=== PATIENT | female | born 1990 | race African-American/Black ===

== ENCOUNTER 2017-01-02 12:01 | Emergency (ER) | payer OTHER ==
[~2017-01-02] VITALS: Ht 172.7 cm; Wt 68.2 kg
[~2017-01-02 12:01] MED LIST: ALBU8HFA IH
[2017-01-02] MEDS ORDERED: HYDROCODONE/ACETAMINOPHEN 5-325 MG TABLET PO ONE (14:00)
[2017-01-02] MEDS ORDERED: KETOROLAC TROMETHAMINE 60 MG/2 ML VIAL IM ONE (14:15)
[2017-01-02] MEDS ORDERED: IBUPROFEN 800 MG TABLET PO ONE (15:00)
[2017-01-02 16:16] VITALS: BP 120/73
== END 2017-01-02 16:17 | disposition home or self-care (01) ==
LOC: EMS 12:04
DX: S93.402A Sprain of unspecified ligament of left ankle, initial encounter (principal); M79.672 Pain in left foot; F17.210 Nicotine dependence, cigarettes, uncomplicated; J45.909 Unspecified asthma, uncomplicated; X58.XXXA Exposure to other specified factors, initial encounter; Y93.89 Activity, other specified; Y92.9 Unspecified place or not applicable; Y99.9 Unspecified external cause status
CPT/HCPCS: 73610; 73630; 99284; J1885

== ENCOUNTER 2017-04-20 16:16 | Emergency (ER) | payer OTHER ==
[~2017-04-20] VITALS: Ht 172.7 cm; Wt 68.0 kg
[2017-04-20] MEDS ORDERED: LIDOCAINE HCL 5% TRANSDERMAL PATCH TD ONE (17:45)
[2017-04-20 19:15] VITALS: BP 108/71
== END 2017-04-20 19:16 | disposition home or self-care (01) ==
LOC: EMS 16:19
DX: M54.5 Low back pain (principal); M54.6 Pain in thoracic spine; M41.9 Scoliosis, unspecified; J45.909 Unspecified asthma, uncomplicated; F17.210 Nicotine dependence, cigarettes, uncomplicated
CPT/HCPCS: 72072; 72100; 99284

== ENCOUNTER 2017-05-13 10:28 | Emergency (ER) | payer OTHER ==
[~2017-05-13] VITALS: Ht 172.7 cm; Wt 69.0 kg
[2017-05-13] MEDS ORDERED: HYDR-3965 PO (10:40)
[2017-05-13] MEDS ORDERED: MET500 PO (10:40)
[2017-05-13] MEDS ORDERED: HYDROCODONE/ACETAMINOPHEN 10-325 MG TABLET PO ONE (11:15)
[2017-05-13 13:54] VITALS: BP 117/66
== END 2017-05-13 13:57 | disposition home or self-care (01) ==
LOC: EMS 10:30
DX: S33.5XXA Sprain of ligaments of lumbar spine, initial encounter (principal); S13.4XXA Sprain of ligaments of cervical spine, initial encounter; J45.909 Unspecified asthma, uncomplicated; X58.XXXA Exposure to other specified factors, initial encounter; Y93.89 Activity, other specified; Y92.89 Other specified places as the place of occurrence of the external cause; Y99.8 Other external cause status
CPT/HCPCS: 72125; 72131; 81025; 99284

== ENCOUNTER 2017-08-18 09:17 | Emergency (ER) | payer OTHER ==
[~2017-08-18] VITALS: Ht 172.7 cm; Wt 70.0 kg
[~2017-08-18 09:17] MED LIST changes: +HYDR-4061 PO; +MET500 PO
[2017-08-18] MEDS ORDERED: TRAM50TA4 PO (09:36)
[2017-08-18] MEDS ORDERED: TRAZ-147 PO (09:36)
[2017-08-18] MEDS ORDERED: RISP2 PO (09:36)
[2017-08-18] MEDS ORDERED: PROZ10 PO (09:36)
[2017-08-18] MEDS ORDERED: BACL10TA PO (09:37)
[2017-08-18] MEDS ORDERED: IBUPROFEN 600 MG TABLET PO ONE (10:00)
[2017-08-18 10:08] VITALS: BP 112/70
== END 2017-08-18 10:46 | disposition home or self-care (01) ==
LOC: EMS 09:22
DX: M72.2 Plantar fascial fibromatosis (principal); J45.909 Unspecified asthma, uncomplicated; Z79.899 Other long term (current) drug therapy
CPT/HCPCS: 99284

== ENCOUNTER 2018-01-25 14:54 | Emergency (ER) | payer OTHER ==
[~2018-01-25] VITALS: Ht 172.7 cm; Wt 71.0 kg
[~2018-01-25 14:54] MED LIST changes: +BACL10TA PO; -MET500 PO; +PROZ10 PO; +RISP2 PO; +TRAM50TA4 PO; +TRAZ-147 PO
[2018-01-25 16:36] VITALS: BP 113/71
[2018-01-25] MEDS ORDERED: TraMADol HCL 50 MG TABLET PO ONE (17:00)
== END 2018-01-25 17:23 | disposition home or self-care (01) ==
LOC: EMS 14:55
DX: M54.5 Low back pain (principal); M79.671 Pain in right foot; G89.29 Other chronic pain; J45.909 Unspecified asthma, uncomplicated
CPT/HCPCS: 99283

== ENCOUNTER 2018-04-05 21:56 | Emergency (ER) | payer OTHER ==
[~2018-04-05] VITALS: Ht 172.7 cm; Wt 70.9 kg
[2018-04-05 22:06] VITALS: BP 123/78
== END 2018-04-05 23:39 | disposition left against medical advice (07) ==
LOC: EMS 21:57
DX: R19.7 Diarrhea, unspecified (principal); R11.0 Nausea; Z53.21 Procedure and treatment not carried out due to patient leaving prior to being seen by health care provider

== ENCOUNTER 2018-05-17 15:57 | Emergency (ER) | payer OTHER ==
[~2018-05-17] VITALS: Ht 172.7 cm; Wt 70.9 kg
[~2018-05-17 15:57] MED LIST changes: -HYDR-4061 PO; -RISP2 PO; -TRAZ-147 PO; +TRAZ-220 PO
[2018-05-17] MEDS ORDERED: FLUO-191 PO (16:20)
[2018-05-17 17:18] VITALS: BP 117/74
== END 2018-05-17 17:35 | disposition home or self-care (01) ==
LOC: EMS 15:58
DX: F32.9 Major depressive disorder, single episode, unspecified (principal); F31.9 Bipolar disorder, unspecified; F41.9 Anxiety disorder, unspecified; F20.9 Schizophrenia, unspecified; J45.909 Unspecified asthma, uncomplicated; Z76.0 Encounter for issue of repeat prescription
CPT/HCPCS: 99284

== ENCOUNTER 2018-08-22 17:07 | Emergency (ER) | payer OTHER ==
[~2018-08-22] VITALS: Ht 172.7 cm; Wt 70.9 kg
[~2018-08-22 17:07] MED LIST changes: -ALBU8HFA IH; -BACL10TA PO; +FLUO-191 PO
[2018-08-22] MEDS ORDERED: BACL10TA PO (17:18)
[2018-08-22] MEDS ORDERED: LIDOCAINE 5% TRANSDERMAL PATCH TD ONE (18:15)
[2018-08-22 19:40] VITALS: BP 124/73
== END 2018-08-22 20:24 | disposition home or self-care (01) ==
LOC: EMS 17:08
DX: M54.6 Pain in thoracic spine (principal); M54.5 Low back pain; M54.2 Cervicalgia; F31.9 Bipolar disorder, unspecified; F41.9 Anxiety disorder, unspecified; F20.9 Schizophrenia, unspecified; J45.909 Unspecified asthma, uncomplicated; W01.0XXA Fall on same level from slipping, tripping and stumbling without subsequent striking against object, initial encounter; Y93.89 Activity, other specified; Y92.89 Other specified places as the place of occurrence of the external cause; Y99.8 Other external cause status
CPT/HCPCS: 72040; 72072; 72100

== ENCOUNTER 2018-09-25 11:37 | Emergency (ER) | payer OTHER ==
[~2018-09-25] VITALS: Ht 172.7 cm; Wt 70.9 kg
[~2018-09-25 11:37] MED LIST changes: +BACL10TA PO; -PROZ10 PO
[2018-09-25] MEDS: HYDROCODONE/ACETAMINOPHEN 5-325 MG TABLET PO ONE (12:58)
[2018-09-25] MEDS: BACLOFEN 10 MG TABLET PO ONE (12:58)
[2018-09-25 14:39] VITALS: BP 116/62
== END 2018-09-25 14:41 | disposition home or self-care (01) ==
LOC: EMS 11:38
DX: M41.34 Thoracogenic scoliosis, thoracic region (principal); M41.86 Other forms of scoliosis, lumbar region; G89.29 Other chronic pain; J45.909 Unspecified asthma, uncomplicated; F31.9 Bipolar disorder, unspecified; F41.9 Anxiety disorder, unspecified; F20.9 Schizophrenia, unspecified
CPT/HCPCS: 72072

== ENCOUNTER 2018-10-19 10:25 | Emergency (ER) | payer OTHER ==
[~2018-10-19] VITALS: Ht 172.7 cm; Wt 70.0 kg
[2018-10-19 12:00] LABS: BASOPHILS % (AUTO) 0.6 % (0.0-2.0); HEMATOCRIT 37.6 % (36-46); HEMOGLOBIN 12.4 g/dL (12.0-16.0); LYMPHOCYTES # (AUTO) 1.8 K/uL (1.0-4.8); MEAN CORPUSCULAR HGB CONC 33.1 G/dL (31.0-37.0); MEAN CORPUSCULAR VOLUME 79 fL (80-100); MONOCYTES # (AUTO) 0.6 K/uL (0.1-1.0); MONOCYTES % (AUTO) 7.8 % (2.0-9.0); NEUTROPHILS # (AUTO) 4.3 K/uL (1.8-7.7); NEUTROPHILS % (AUTO) 61.6 % (40.0-70.0); PLATELET COUNT (AUTO) 702 K/uL (150-450); RED BLOOD CELL COUNT(AUTO) 4.78 MIL/uL (4.00-5.20); RED CELL DISTRIBUTION WIDTH 14.3 % (11.5-14.5)
[2018-10-19] MEDS ORDERED: KETOROLAC TROMETHAMINE 10 MG TABLET PO ONE (12:00)
[2018-10-19 12:20] LABS: ANION GAP 9 mmol/L (8-16); CALCIUM, TOTAL 9.5 mg/dL (8.8-10.5); CARBON DIOXIDE 30 mmol/L (22-29); CHLORIDE 99 mmol/L (98-107); CREATININE 0.77 mg/dL (0.60-1.30); GLOMERULAR FILTR. RATE CALC > 60 mL/min (>60); GLUCOSE,RANDOM 86 mg/dL (70-110); POTASSIUM 4.2 mmol/L (3.5-5.1); SODIUM SERUM 138 mmol/L (136-145); UREA NITROGEN, BLOOD 6 mg/dL (7-18)
[2018-10-19 12:29] LABS: PLATELET MORPHOLOGY COMMENT LARGE PLTS PRESENT
[2018-10-19 12:32] LABS: ALANINE AMINOTRANSFERASE 14 U/L (12-78); ALBUMIN 3.9 g/dL (3.4-5.0); ALKALINE PHOSPHATASE 80 U/L (46-116); ASPARTATE AMINOTRANSFERASE 22 U/L (15-37); BILIRUBIN,TOTAL 0.1 mg/dL (0.1-1.0); HCG,QUANTITATIVE < 1 mIU/mL (0-6); TOTAL PROTEIN, SERUM 9.3 g/dL (6.4-8.2)
[2018-10-19 13:16] LABS: APPEARANCE,URINE CLOUDY (CLEAR); GLUCOSE, URINE (UA) NEGATIVE (NEGATIVE); KETONES,URINE 15 mg/dL (NEGATIVE); LEUKOCYTE ESTERASE ,URINE NEGATIVE (NEGATIVE); NITRATE,URINE NEGATIVE (NEGATIVE); OCCULT BLOOD,URINE NEGATIVE (NEGATIVE); PH,URINE 7.5 (5.0-8.0); PROTEIN,URINE POS 1+ (NEGATIVE)
[2018-10-19 13:22] LABS: BACTERIA,URINE None Seen /HPF (None Seen); BILIRUBIN,URINE PRELIM. POSITIVE (NEGATIVE); RBC,URINE None Seen /HPF (0-2); SQUAMOUS EPITHELIAL CELL,UR Many /LPF (None Seen); WBC,URINE None Seen /HPF (0-5)
[2018-10-19 14:02] VITALS: BP 110/62
== END 2018-10-19 14:15 | disposition home or self-care (01) ==
LOC: EMS 10:26
DX: D25.9 Leiomyoma of uterus, unspecified (principal); J45.909 Unspecified asthma, uncomplicated; M41.9 Scoliosis, unspecified; F41.9 Anxiety disorder, unspecified; F31.9 Bipolar disorder, unspecified; F20.9 Schizophrenia, unspecified

== ENCOUNTER 2018-12-25 19:26 | Emergency (ER) | payer OTHER ==
[~2018-12-25] VITALS: Ht 172.7 cm; Wt 66.4 kg
[2018-12-25] MEDS ORDERED: ALBU8HFA IH (20:58)
[2018-12-26] MEDS ORDERED: ONDANSETRON HCL 4 MG TABLET PO ONE (00:30)
[2018-12-26] MEDS ORDERED: ALBUTEROL SULFATE 2.5 MG/0.5 ML NEB SOLUTION NEB ONE (00:30)
[2018-12-26] MEDS ORDERED: PredniSONE 20 MG TABLET PO ONE (00:30)
[2018-12-26] MEDS ORDERED: IPRATROPIUM BROMIDE 0.5 MG/2.5 ML NEB SOLUTION NEB ONE (00:30)
[2018-12-26 01:10] LABS: INFLUENZA TYPE A NEGATIVE FOR TYPE A (NEGATIVE); INFLUENZA TYPE B NEGATIVE FOR TYPE B (NEGATIVE)
[2018-12-26 01:31] VITALS: BP 109/79
== END 2018-12-26 01:46 | disposition home or self-care (01) ==
LOC: EMS 19:27
DX: K52.9 Noninfective gastroenteritis and colitis, unspecified (principal); J45.909 Unspecified asthma, uncomplicated; F41.9 Anxiety disorder, unspecified; F31.9 Bipolar disorder, unspecified; F20.9 Schizophrenia, unspecified; Z87.891 Personal history of nicotine dependence; Z79.899 Other long term (current) drug therapy
CPT/HCPCS: 87804; 94640; 99283; J7512; Q0162

== ENCOUNTER 2019-11-05 10:27 | Emergency (ER) | payer SELFPAY ==
[~2019-11-05] VITALS: Ht 172.7 cm; Wt 77.3 kg
[~2019-11-05 10:27] MED LIST changes: +ALBU8HFA IH; -BACL10TA PO; -FLUO-191 PO; -TRAM50TA4 PO; -TRAZ-220 PO
[2019-11-05 10:30] VITALS: BP 115/90
[2019-11-05] MEDS ORDERED: NAPR250T4 PO (10:37)
[2019-11-05] MEDS ORDERED: TraMADol HCL 50 MG TABLET PO ONE (11:30)
== END 2019-11-05 11:36 | disposition home or self-care (01) ==
LOC: EMS 10:29
DX: K02.9 Dental caries, unspecified (principal); F17.210 Nicotine dependence, cigarettes, uncomplicated; J45.909 Unspecified asthma, uncomplicated; F31.9 Bipolar disorder, unspecified; F41.9 Anxiety disorder, unspecified; F20.9 Schizophrenia, unspecified; Z79.899 Other long term (current) drug therapy
CPT/HCPCS: 99406

== ENCOUNTER 2021-10-05 06:18 | Emergency (ER) | payer OTHER ==
[~2021-10-05] VITALS: Ht 172.7 cm; Wt 65.5 kg
[~2021-10-05 06:18] MED LIST changes: +NAPR-1197 PO
[2021-10-05 06:37] VITALS: BP 106/69
== END 2021-10-05 07:23 | disposition home or self-care (01) ==
LOC: EMS 06:19
DX: S16.1XXA Strain of muscle, fascia and tendon at neck level, initial encounter (principal); F31.9 Bipolar disorder, unspecified; F41.9 Anxiety disorder, unspecified; J45.909 Unspecified asthma, uncomplicated; F20.9 Schizophrenia, unspecified; F17.210 Nicotine dependence, cigarettes, uncomplicated; V49.49XA Driver injured in collision with other motor vehicles in traffic accident, initial encounter; Y93.89 Activity, other specified; Y92.89 Other specified places as the place of occurrence of the external cause; Y99.8 Other external cause status
CPT/HCPCS: 99282; Z7502

== ENCOUNTER 2021-12-13 18:26 | Emergency (ER) | payer OTHER ==
[~2021-12-13] VITALS: Ht 172.7 cm; Wt 65.9 kg
[2021-12-13 18:29] VITALS: BP 109/66
[2021-12-13] MEDS ORDERED: LIDO1ADH83 TP (19:18)
== END 2021-12-13 19:33 | disposition home or self-care (01) ==
LOC: EMS 18:27
DX: S13.4XXA Sprain of ligaments of cervical spine, initial encounter (principal); X50.9XXA Other and unspecified overexertion or strenuous movements or postures, initial encounter; Y93.89 Activity, other specified; Y92.89 Other specified places as the place of occurrence of the external cause; Y99.8 Other external cause status
CPT/HCPCS: 99282; Z7502

== ENCOUNTER 2022-03-30 06:44 | Emergency (ER) | payer OTHER ==
[~2022-03-30] VITALS: Ht 172.7 cm; Wt 61.8 kg
[~2022-03-30 06:44] MED LIST changes: -ALBU8HFA IH; +LIDO1ADH83 TP; -NAPR-1197 PO
[2022-03-30] MEDS ORDERED: HYDR-4723 PO (06:52)
[2022-03-30] MEDS ORDERED: FLUO20CA36 PO (06:52)
[2022-03-30] MEDS ORDERED: BACL10TA PO (06:52)
[2022-03-30] MEDS ORDERED: LIDOCAINE 5% TRANSDERMAL PATCH TD ONE (07:45)
[2022-03-30] MEDS ORDERED: ACETAMINOPHEN 325 MG TABLET PO ONE (07:45)
[2022-03-30 07:52] LABS: BASOPHILS % (AUTO) 0.3 % (0.0-2.0); EOSINOPHILS % (AUTO) 3.9 % (1.0-6.0); HEMATOCRIT 39.8 % (36-46); HEMOGLOBIN 13.5 g/dL (12.0-16.0); LYMPHOCYTES # (AUTO) 1.7 K/uL (1.0-4.8); LYMPHOCYTES % (AUTO) 30.8 % (22.0-44.0); MEAN CORPUSCULAR HEMOGLOBIN 27.9 pg (26.0-34.0); MEAN CORPUSCULAR HGB CONC 33.9 G/dL (31.0-37.0); MEAN CORPUSCULAR VOLUME 83 fL (80-100); MONOCYTES # (AUTO) 0.4 K/uL (0.1-1.0); MONOCYTES % (AUTO) 6.6 % (2.0-9.0); NEUTROPHILS # (AUTO) 3.2 K/uL (1.8-7.7); NEUTROPHILS % (AUTO) 58.4 % (40.0-70.0); PLATELET COUNT (AUTO) 432 K/uL (150-450); RED BLOOD CELL COUNT(AUTO) 4.83 MIL/uL (4.00-5.20); RED CELL DISTRIBUTION WIDTH 13.5 % (11.5-14.5)
[2022-03-30 08:02] LABS: ANION GAP 6 mmol/L (8-16); CALCIUM, TOTAL 9.8 mg/dL (8.8-10.5); CARBON DIOXIDE 29 mmol/L (22-29); CHLORIDE 98 mmol/L (98-107); CREATININE 0.74 mg/dL (0.60-1.30); GLOMERULAR FILTR. RATE CALC > 60 mL/min (>60); GLUCOSE,RANDOM 97 mg/dL (70-110); POTASSIUM 3.8 mmol/L (3.5-5.1); SODIUM SERUM 133 mmol/L (136-145); UREA NITROGEN, BLOOD 9 mg/dL (7-18)
[2022-03-30 08:05] VITALS: BP 102/64
[2022-03-30 08:25] LABS: ALANINE AMINOTRANSFERASE 24 U/L (12-78); ALBUMIN 4.2 g/dL (3.4-5.0); ALKALINE PHOSPHATASE 48 U/L (46-116); ASPARTATE AMINOTRANSFERASE 20 U/L (15-37); BILIRUBIN,TOTAL 0.3 mg/dL (0.1-1.0); CREATINE KINASE, TOTAL ONLY 58 U/L (26-192); HCG,QUANTITATIVE < 1 mIU/mL (0-6); TOTAL PROTEIN, SERUM 8.4 g/dL (6.4-8.2)
== END 2022-03-30 08:50 | disposition home or self-care (01) ==
LOC: EMS 06:45
DX: S29.012A Strain of muscle and tendon of back wall of thorax, initial encounter (principal); Z79.899 Other long term (current) drug therapy; X50.0XXA Overexertion from strenuous movement or load, initial encounter; Y93.89 Activity, other specified; Y92.89 Other specified places as the place of occurrence of the external cause; Y99.8 Other external cause status
CPT/HCPCS: 71045; 80053; 82550; 84484; 84702; 85025; 85379; 93005; 99285; 36415-L1; 36415-TC

== ENCOUNTER 2022-05-12 07:01 | Emergency (ER) | payer MEDICAID, OTHER ==
[~2022-05-12] VITALS: Ht 172.7 cm; Wt 131.0 kg
[~2022-05-12 07:01] MED LIST changes: +BACL10TA PO; +FLUO20CA36 PO; +HYDR-4723 PO
[2022-05-12] MEDS ORDERED: LORazepam 1 MG TABLET PO ONE (08:00)
[2022-05-12 08:17] LABS: BASOPHILS % (AUTO) 0.4 % (0.0-2.0); EOSINOPHILS % (AUTO) 6.1 % (1.0-6.0); HEMATOCRIT 38.9 % (36-46); HEMOGLOBIN 12.8 g/dL (12.0-16.0); LYMPHOCYTES # (AUTO) 1.7 K/uL (1.0-4.8); LYMPHOCYTES % (AUTO) 29.2 % (22.0-44.0); MEAN CORPUSCULAR HEMOGLOBIN 27.4 pg (26.0-34.0); MEAN CORPUSCULAR HGB CONC 32.9 G/dL (31.0-37.0); MEAN CORPUSCULAR VOLUME 83 fL (80-100); MONOCYTES # (AUTO) 0.6 K/uL (0.1-1.0); MONOCYTES % (AUTO) 10.3 % (2.0-9.0); NEUTROPHILS # (AUTO) 3.1 K/uL (1.8-7.7); PLATELET COUNT (AUTO) 413 K/uL (150-450); RED BLOOD CELL COUNT(AUTO) 4.68 MIL/uL (4.00-5.20); RED CELL DISTRIBUTION WIDTH 13.6 % (11.5-14.5)
[2022-05-12 08:24] LABS: ANION GAP 9 mmol/L (8-16); CALCIUM, TOTAL 9.4 mg/dL (8.8-10.5); CARBON DIOXIDE 29 mmol/L (22-29); CHLORIDE 100 mmol/L (98-107); CREATININE 0.78 mg/dL (0.60-1.30); GLOMERULAR FILTR. RATE CALC > 60 mL/min (>60); GLUCOSE,RANDOM 98 mg/dL (70-110); POTASSIUM 3.8 mmol/L (3.5-5.1); SODIUM SERUM 138 mmol/L (136-145); UREA NITROGEN, BLOOD 12 mg/dL (7-18)
[2022-05-12 08:30] LABS: ALANINE AMINOTRANSFERASE 19 U/L (12-78); ALBUMIN 3.8 g/dL (3.4-5.0); ALKALINE PHOSPHATASE 44 U/L (46-116); ASPARTATE AMINOTRANSFERASE 13 U/L (15-37); BILIRUBIN,TOTAL 0.4 mg/dL (0.1-1.0); TOTAL PROTEIN, SERUM 7.7 g/dL (6.4-8.2)
[2022-05-12 09:27] VITALS: BP 122/60
== END 2022-05-12 09:34 | disposition home or self-care (01) ==
LOC: EMS 07:02
DX: F41.9 Anxiety disorder, unspecified (principal); R63.4 Abnormal weight loss; Z87.39 Personal history of other diseases of the musculoskeletal system and connective tissue
CPT/HCPCS: 80053; 85025; 93005; 99284

== ENCOUNTER 2022-06-24 09:03 | Emergency (ER) | payer MEDICAID, OTHER ==
[~2022-06-24] VITALS: Ht 170.2 cm; Wt 63.6 kg
[2022-06-24] MEDS ORDERED: HYDR-4072 PO (09:19)
[2022-06-24] MEDS ORDERED: ALBU8HFA IH (09:19)
[2022-06-24] MEDS ORDERED: LORA-999 PO (09:19)
[2022-06-24] MEDS ORDERED: METOCLOPRAMIDE HCL 5 MG/ML 2 ML VIAL IVP ONE (10:00)
[2022-06-24] MEDS ORDERED: SODIUM CHLORIDE 0.9% 1,000 ML IV ONE (10:00)
[2022-06-24] MEDS ORDERED: KETOROLAC TROMETHAMINE 30 MG/ML VIAL IVP ONE (10:00)
[2022-06-24] MEDS ORDERED: DiphenhydrAMINE HCL 50 MG/ML VIAL IVP ONE (10:00)
[2022-06-24 11:45] VITALS: BP 103/67
== END 2022-06-24 12:22 | disposition home or self-care (01) ==
LOC: EMS 09:14
DX: G43.909 Migraine, unspecified, not intractable, without status migrainosus (principal); F41.9 Anxiety disorder, unspecified; F32.9 Major depressive disorder, single episode, unspecified; J45.909 Unspecified asthma, uncomplicated; M54.2 Cervicalgia; M54.9 Dorsalgia, unspecified
CPT/HCPCS: 99284; 96374; 70450; 96375; 96361; J1200; J1885; J2765

== ENCOUNTER 2022-07-01 20:03 | Emergency (ER) | payer OTHER ==
[~2022-07-01] VITALS: Ht 172.7 cm; Wt 72.7 kg
[~2022-07-01 20:03] MED LIST changes: +ALBU8HFA IH; +HYDR-4072 PO; +LORA-999 PO
[2022-07-01 21:06] VITALS: BP 122/75
[2022-07-01] MEDS ORDERED: HydrOXYzine PAMOATE 25 MG CAPSULE PO ONE (22:30)
== END 2022-07-01 23:38 | disposition home or self-care (01) ==
LOC: EMS 20:04
DX: F12.180 Cannabis abuse with cannabis-induced anxiety disorder (principal); J45.909 Unspecified asthma, uncomplicated; F32.9 Major depressive disorder, single episode, unspecified; G43.909 Migraine, unspecified, not intractable, without status migrainosus; G89.29 Other chronic pain; M54.2 Cervicalgia
CPT/HCPCS: 99283

== ENCOUNTER 2022-09-14 10:18 | Emergency (ER) | payer OTHER ==
[~2022-09-14] VITALS: Ht 172.7 cm; Wt 60.5 kg
[~2022-09-14 10:18] MED LIST changes: -HYDR-4723 PO; -LIDO1ADH83 TP
[2022-09-14 11:50] VITALS: BP 137/81
== END 2022-09-14 12:30 | disposition left against medical advice (07) ==
LOC: EMS 10:25
DX: R11.10 Vomiting, unspecified (principal); R10.9 Unspecified abdominal pain; Z53.21 Procedure and treatment not carried out due to patient leaving prior to being seen by health care provider

== ENCOUNTER 2022-10-31 11:55 | Emergency (ER) | payer MEDICAID, OTHER ==
[~2022-10-31] VITALS: Ht 172.7 cm; Wt 60.0 kg
[2022-10-31] MEDS ORDERED: FLUO20CA36 PO (12:01)
[2022-10-31] MEDS ORDERED: ACETAMINOPHEN 500 MG TABLET PO ONE (12:45)
[2022-10-31] MEDS ORDERED: LIDOCAINE 5% TRANSDERMAL PATCH TD ONE (13:00)
[2022-10-31 15:04] VITALS: BP 118/74
== END 2022-10-31 15:07 | disposition home or self-care (01) ==
LOC: EMS 11:59
DX: S09.8XXA Other specified injuries of head, initial encounter (principal); S20.20XA Contusion of thorax, unspecified, initial encounter; F41.9 Anxiety disorder, unspecified; J45.909 Unspecified asthma, uncomplicated; F32.A Depression, unspecified; G43.909 Migraine, unspecified, not intractable, without status migrainosus; M41.9 Scoliosis, unspecified; G89.29 Other chronic pain; M54.2 Cervicalgia; M54.9 Dorsalgia, unspecified; F17.210 Nicotine dependence, cigarettes, uncomplicated; W10.8XXA Fall (on) (from) other stairs and steps, initial encounter; Y93.89 Activity, other specified; Y92.89 Other specified places as the place of occurrence of the external cause; Y99.8 Other external cause status
CPT/HCPCS: 70450; 71101; 72125; 99284

== ENCOUNTER 2023-05-25 07:45 | Emergency (ER) | payer MEDICAID, OTHER ==
[~2023-05-25] VITALS: Ht 170.2 cm; Wt 56.8 kg
[~2023-05-25 07:45] MED LIST changes: +ALBU18HF12 IH; -ALBU8HFA IH
[2023-05-25 07:54] VITALS: TEMP 98.5
[2023-05-25 08:29] LABS: BASOPHILS % (AUTO) 0.9 % (0.0-2.0); EOSINOPHILS % (AUTO) 9.8 % (1.0-6.0); HEMATOCRIT 39.7 % (36-46); LYMPHOCYTES # (AUTO) 2.1 K/uL (1.0-4.8); LYMPHOCYTES % (AUTO) 35.3 % (22.0-44.0); MEAN CORPUSCULAR HGB CONC 32.7 G/dL (31.0-37.0); MEAN CORPUSCULAR VOLUME 86 fL (80-100); MONOCYTES # (AUTO) 0.5 K/uL (0.1-1.0); MONOCYTES % (AUTO) 7.8 % (2.0-9.0); NEUTROPHILS # (AUTO) 2.8 K/uL (1.8-7.7); NEUTROPHILS % (AUTO) 46.2 % (40.0-70.0); PLATELET COUNT (AUTO) 426 K/uL (150-450); RED BLOOD CELL COUNT(AUTO) 4.64 MIL/uL (4.00-5.20); RED CELL DISTRIBUTION WIDTH 13.4 % (11.5-14.5)
[2023-05-25 08:37] LABS: ANION GAP 8 mmol/L (8-16); CALCIUM, TOTAL 9.3 mg/dL (8.8-10.5); CARBON DIOXIDE 28 mmol/L (22-29); CHLORIDE 99 mmol/L (98-107); CREATININE 0.82 mg/dL (0.60-1.30); GLOMERULAR FILTR. RATE CALC > 60 mL/min (>60); GLUCOSE,RANDOM 85 mg/dL (70-110); POTASSIUM 3.9 mmol/L (3.5-5.1); SODIUM SERUM 135 mmol/L (136-145)
[2023-05-25 08:49] LABS: APPEARANCE,URINE CLEAR (CLEAR); BILIRUBIN,URINE NEGATIVE (NEGATIVE); GLUCOSE, URINE (UA) NEGATIVE (NEGATIVE); KETONES,URINE NEGATIVE (NEGATIVE); LEUKOCYTE ESTERASE ,URINE NEGATIVE (NEGATIVE); NITRATE,URINE NEGATIVE (NEGATIVE); OCCULT BLOOD,URINE TRACE (NEGATIVE); PROTEIN,URINE NEGATIVE (NEGATIVE); SPECIFIC GRAVITIY, URINE 1.006 (1.003-1.030); UROBILINOGEN,URINE <=1.0 mg/dL (<=1.0)
[2023-05-25 08:51] LABS: ALANINE AMINOTRANSFERASE 15 U/L (12-78); ALBUMIN 3.8 g/dL (3.4-5.0); ALKALINE PHOSPHATASE 54 U/L (46-116); ASPARTATE AMINOTRANSFERASE 16 U/L (15-37); BILIRUBIN,TOTAL 0.2 mg/dL (0.1-1.0); HCG,QUANTITATIVE 2 mIU/mL (0-6); LIPASE 34 U/L (16-77); TOTAL PROTEIN, SERUM 7.7 g/dL (6.4-8.2)
[2023-05-25 09:02] LABS: BACTERIA,URINE None Seen /HPF (None Seen); RBC,URINE 0-2 /HPF (0-2); SQUAMOUS EPITHELIAL CELL,UR Moderate /LPF (None Seen); WBC,URINE None Seen /HPF (0-5)
[2023-05-25 11:26] VITALS: BP 108/72; PULSE 88; RESP 16
== END 2023-05-25 12:43 | disposition home or self-care (01) ==
LOC: EMS 07:45
DX: R11.2 Nausea with vomiting, unspecified (principal); G43.909 Migraine, unspecified, not intractable, without status migrainosus; J45.909 Unspecified asthma, uncomplicated; F31.9 Bipolar disorder, unspecified; F17.210 Nicotine dependence, cigarettes, uncomplicated
CPT/HCPCS: 80053; 81001; 83690; 84702; 85025; 99283

== ENCOUNTER 2024-03-05 07:31 | Emergency (ER) | payer OTHER ==
[~2024-03-05] VITALS: Ht 172.7 cm; Wt 62.7 kg
[2024-03-05 07:42] VITALS: TEMP 98.1
[2024-03-05 09:50] VITALS: BP 112/76; PULSE 89; RESP 16
== END 2024-03-05 10:13 | disposition home or self-care (01) ==
LOC: EMS 07:32
DX: S80.02XA Contusion of left knee, initial encounter (principal); S00.83XA Contusion of other part of head, initial encounter; F41.9 Anxiety disorder, unspecified; J45.909 Unspecified asthma, uncomplicated; F32.A Depression, unspecified; G43.909 Migraine, unspecified, not intractable, without status migrainosus; F17.210 Nicotine dependence, cigarettes, uncomplicated; W22.8XXA Striking against or struck by other objects, initial encounter; Y93.89 Activity, other specified; Y92.89 Other specified places as the place of occurrence of the external cause; Y99.8 Other external cause status
CPT/HCPCS: 99283

== ENCOUNTER → 2024-07-30 | Emergency (ER) | payer OTHER ==
[~2024-07-30] VITALS: Ht 172.7 cm; Wt 56.3 kg
[~2024-07-30] MED LIST changes: +FLUO-418 PO; -FLUO20CA36 PO
[2024-07-30 07:40] LABS: COVID AG,FIA SOURCE NASAL SWAB
[2024-07-30 08:00] LABS: APPEARANCE,URINE CLEAR (CLEAR); BILIRUBIN,URINE NEGATIVE (NEGATIVE); COLOR,URINE LIGHT YELLOW (YELLOW); GLUCOSE, URINE (UA) NEGATIVE (NEGATIVE); KETONES,URINE NEGATIVE (NEGATIVE); LEUKOCYTE ESTERASE ,URINE NEGATIVE (NEGATIVE); NITRATE,URINE NEGATIVE (NEGATIVE); OCCULT BLOOD,URINE MODERATE (NEGATIVE); PROTEIN,URINE TRACE mg/dL (NEGATIVE); SPECIFIC GRAVITIY, URINE 1.022 (1.003-1.030); UROBILINOGEN,URINE <=1.0 mg/dL (<=1.0)
[2024-07-30 08:01] LABS: ANION GAP 4 mmol/L (8-16); CALCIUM, TOTAL 9.3 mg/dL (8.8-10.5); CARBON DIOXIDE 26 mmol/L (22-29); CHLORIDE 106 mmol/L (98-107); CREATININE 0.77 mg/dL (0.60-1.30); GLOMERULAR FILTR. RATE CALC > 60 mL/min (>60); GLUCOSE,RANDOM 90 mg/dL (70-110); POTASSIUM 3.6 mmol/L (3.5-5.1); SODIUM SERUM 136 mmol/L (136-145); UREA NITROGEN, BLOOD 8 mg/dL (7-18)
[2024-07-30 08:06] LABS: ALANINE AMINOTRANSFERASE 15 U/L (12-78); ALBUMIN 3.8 g/dL (3.4-5.0); ALKALINE PHOSPHATASE 50 U/L (46-116); ASPARTATE AMINOTRANSFERASE 15 U/L (15-37); BILIRUBIN,TOTAL 0.7 mg/dL (0.1-1.0); HCG,QUANTITATIVE < 1 mIU/mL (0-6); LIPASE 41 U/L (16-77); TOTAL PROTEIN, SERUM 7.6 g/dL (6.4-8.2)
[2024-07-30 08:09] LABS: SARS-COV2 (COVID) ANTIGEN,FIA Negative (Negative)
[2024-07-30 08:11] LABS: BACTERIA,URINE None Seen /HPF (None Seen); SQUAMOUS EPITHELIAL CELL,UR Few /LPF (None Seen); WBC,URINE None Seen /HPF (0-5)
[2024-07-30 08:12] LABS: INFLUENZA TYPE A NEGATIVE FOR TYPE A (NEGATIVE); INFLUENZA TYPE B NEGATIVE FOR TYPE B (NEGATIVE)
[2024-07-30 09:33] LABS: BASOPHILS % (AUTO) 0.5 % (0.0-2.0); EOSINOPHILS % (AUTO) 1.5 % (1.0-6.0); HEMATOCRIT 38.6 % (36-46); HEMOGLOBIN 12.7 g/dL (12.0-16.0); LYMPHOCYTES # (AUTO) 2.4 K/uL (1.0-4.8); LYMPHOCYTES % (AUTO) 32.3 % (22.0-44.0); MEAN CORPUSCULAR HEMOGLOBIN 28.1 pg (26.0-34.0); MEAN CORPUSCULAR VOLUME 85 fL (80-100); MONOCYTES # (AUTO) 0.7 K/uL (0.1-1.0); MONOCYTES % (AUTO) 9.6 % (2.0-9.0); NEUTROPHILS # (AUTO) 4.2 K/uL (1.8-7.7); NEUTROPHILS % (AUTO) 56.1 % (40.0-70.0); PLATELET COUNT (AUTO) 430 K/uL (150-450); RED BLOOD CELL COUNT(AUTO) 4.53 MIL/uL (4.00-5.20); RED CELL DISTRIBUTION WIDTH 14.6 % (11.5-14.5); WHITE BLOOD COUNT (AUTO) 7.5 K/uL (4.5-11.0)
[2024-07-30 12:09] VITALS: BP 103/58; PULSE 96; RESP 18; TEMP 99.2; O2SAT 98
== END | disposition still patient (30) ==
LOC: EMS 07:18
DX: R19.7 Diarrhea, unspecified (principal); F41.9 Anxiety disorder, unspecified; J45.909 Unspecified asthma, uncomplicated; F32.A Depression, unspecified; G43.909 Migraine, unspecified, not intractable, without status migrainosus; G89.29 Other chronic pain; F17.210 Nicotine dependence, cigarettes, uncomplicated; Z88.1 Allergy status to other antibiotic agents; Z20.822 Contact with and (suspected) exposure to COVID-19
CPT/HCPCS: 80053; 81001; 83690; 84702; 85025; 87804; 99283

== ENCOUNTER 2024-08-22 13:30 | Emergency (ER) | payer OTHER ==
[~2024-08-22] VITALS: Ht 172.7 cm; Wt 58.2 kg
[2024-08-22 14:38] LABS: APPEARANCE,URINE CLEAR (CLEAR); BILIRUBIN,URINE NEGATIVE (NEGATIVE); COLOR,URINE LIGHT YELLOW (YELLOW); GLUCOSE, URINE (UA) NEGATIVE (NEGATIVE); KETONES,URINE NEGATIVE (NEGATIVE); LEUKOCYTE ESTERASE ,URINE NEGATIVE (NEGATIVE); NITRATE,URINE NEGATIVE (NEGATIVE); OCCULT BLOOD,URINE TRACE (NEGATIVE); PH,URINE 6.5 (5.0-8.0); PROTEIN,URINE NEGATIVE (NEGATIVE); SPECIFIC GRAVITIY, URINE 1.026 (1.003-1.030); UROBILINOGEN,URINE <=1.0 mg/dL (<=1.0)
[2024-08-22 14:44] LABS: BASOPHILS % (AUTO) 0.4 % (0.0-2.0); EOSINOPHILS % (AUTO) 1.2 % (1.0-6.0); HEMATOCRIT 38.8 % (36-46); HEMOGLOBIN 12.5 g/dL (12.0-16.0); LYMPHOCYTES # (AUTO) 3.1 K/uL (1.0-4.8); LYMPHOCYTES % (AUTO) 38.8 % (22.0-44.0); MEAN CORPUSCULAR HEMOGLOBIN 27.7 pg (26.0-34.0); MEAN CORPUSCULAR HGB CONC 32.4 G/dL (31.0-37.0); MEAN CORPUSCULAR VOLUME 86 fL (80-100); MONOCYTES # (AUTO) 0.6 K/uL (0.1-1.0); NEUTROPHILS # (AUTO) 4.1 K/uL (1.8-7.7); NEUTROPHILS % (AUTO) 51.6 % (40.0-70.0); PLATELET COUNT (AUTO) 414 K/uL (150-450); RED BLOOD CELL COUNT(AUTO) 4.53 MIL/uL (4.00-5.20); RED CELL DISTRIBUTION WIDTH 14.1 % (11.5-14.5)
[2024-08-22 14:46] LABS: BACTERIA,URINE None Seen /HPF (None Seen); RBC,URINE 0-2 /HPF (0-2); SQUAMOUS EPITHELIAL CELL,UR Moderate /LPF (None Seen); WBC,URINE None Seen /HPF (0-5)
[2024-08-22 15:40] LABS: ANION GAP 8 mmol/L (8-16); CALCIUM, TOTAL 8.7 mg/dL (8.8-10.5); CARBON DIOXIDE 28 mmol/L (22-29); CHLORIDE 103 mmol/L (98-107); CREATININE 0.83 mg/dL (0.60-1.30); GLOMERULAR FILTR. RATE CALC > 60 mL/min (>60); GLUCOSE,RANDOM 71 mg/dL (70-110); POTASSIUM 3.3 mmol/L (3.5-5.1); SODIUM SERUM 139 mmol/L (136-145); UREA NITROGEN, BLOOD 10 mg/dL (7-18)
[2024-08-22 15:51] LABS: ALANINE AMINOTRANSFERASE 16 U/L (12-78); ALBUMIN 3.7 g/dL (3.4-5.0); ALKALINE PHOSPHATASE 44 U/L (46-116); ASPARTATE AMINOTRANSFERASE 18 U/L (15-37); BILIRUBIN,TOTAL 0.3 mg/dL (0.1-1.0); HCG,QUANTITATIVE < 1 mIU/mL (0-6); TOTAL PROTEIN, SERUM 7.3 g/dL (6.4-8.2)
[2024-08-22 16:32] VITALS: BP 102/69; PULSE 76; RESP 17; TEMP 98.5; O2SAT 100
[2024-08-22] MEDS: IBUPROFEN 600 MG TABLET PO ONE (16:33)
[2024-08-22] MEDS: POTASSIUM CHLORIDE 20 MEQ ER TABLET PO ONE (16:33)
== END 2024-08-22 17:01 | disposition home or self-care (01) ==
LOC: EMS 13:30
DX: D25.9 Leiomyoma of uterus, unspecified (principal); F41.9 Anxiety disorder, unspecified; J45.909 Unspecified asthma, uncomplicated; F32.A Depression, unspecified; M41.9 Scoliosis, unspecified; G43.909 Migraine, unspecified, not intractable, without status migrainosus; F17.210 Nicotine dependence, cigarettes, uncomplicated; Z88.1 Allergy status to other antibiotic agents
CPT/HCPCS: 76856; 80053; 81001; 84702; 85025; 99284

== ENCOUNTER 2024-10-29 07:12 | Emergency (ER) | payer OTHER ==
[~2024-10-29] VITALS: Ht 172.7 cm; Wt 59.0 kg
[2024-10-29 07:15] VITALS: TEMP 98.2
[2024-10-29 07:47] LABS: COVID AG,FIA SOURCE NASAL SWAB
[2024-10-29 07:58] LABS: APPEARANCE,URINE CLEAR (CLEAR); BILIRUBIN,URINE NEGATIVE (NEGATIVE); COLOR,URINE LIGHT YELLOW (YELLOW); GLUCOSE, URINE (UA) NEGATIVE (NEGATIVE); KETONES,URINE NEGATIVE (NEGATIVE); LEUKOCYTE ESTERASE ,URINE NEGATIVE (NEGATIVE); NITRATE,URINE NEGATIVE (NEGATIVE); OCCULT BLOOD,URINE MODERATE (NEGATIVE); PH,URINE 6.5 (5.0-8.0); PROTEIN,URINE NEGATIVE (NEGATIVE); SPECIFIC GRAVITIY, URINE 1.018 (1.003-1.030); UROBILINOGEN,URINE <=1.0 mg/dL (<=1.0)
[2024-10-29 08:12] LABS: BACTERIA,URINE None Seen /HPF (None Seen); SQUAMOUS EPITHELIAL CELL,UR Few /LPF (None Seen); WBC,URINE None Seen /HPF (0-5)
[2024-10-29 08:25] LABS: INFLUENZA TYPE A NEGATIVE FOR TYPE A (NEGATIVE); INFLUENZA TYPE B NEGATIVE FOR TYPE B (NEGATIVE); SARS-COV2 (COVID) ANTIGEN,FIA Negative (Negative)
[2024-10-29 09:39] VITALS: BP 118/71; PULSE 78; RESP 18; O2SAT 100
[2024-10-29] MEDS ORDERED: GUAIFDM PO (10:37)
[2024-10-29] MEDS ORDERED: ACET-66 PO (10:37)
== END 2024-10-29 11:18 | disposition home or self-care (01) ==
LOC: EMS 07:12
DX: D25.9 Leiomyoma of uterus, unspecified (principal); J20.9 Acute bronchitis, unspecified; R10.30 Lower abdominal pain, unspecified; J45.909 Unspecified asthma, uncomplicated; F41.9 Anxiety disorder, unspecified; F32.A Depression, unspecified; F17.210 Nicotine dependence, cigarettes, uncomplicated; Z88.1 Allergy status to other antibiotic agents; Z79.899 Other long term (current) drug therapy; Z20.822 Contact with and (suspected) exposure to COVID-19
CPT/HCPCS: 81001; 87804; 99283

== ENCOUNTER 2024-12-17 07:43 | Emergency (ER) | payer OTHER ==
[~2024-12-17] VITALS: Ht 172.7 cm; Wt 60.0 kg
[~2024-12-17 07:43] MED LIST changes: +ACET-66 PO; +GUAIFDM PO; -LORA-999 PO; +LORA0.5T20 PO
[2024-12-17 07:46] VITALS: TEMP 97.9
[2024-12-17] MEDS ORDERED: KETO10TA2 PO (08:29)
[2024-12-17] MEDS: KETOROLAC TROMETHAMINE 60 MG/2 ML VIAL IM ONE (08:45)
[2024-12-17 09:05] VITALS: BP 106/65; PULSE 87; RESP 16; O2SAT 99
== END 2024-12-17 09:20 | disposition home or self-care (01) ==
LOC: EMS 07:43
DX: M54.50 Low back pain, unspecified (principal); F41.9 Anxiety disorder, unspecified; F32.A Depression, unspecified; J45.909 Unspecified asthma, uncomplicated; G43.909 Migraine, unspecified, not intractable, without status migrainosus; F17.210 Nicotine dependence, cigarettes, uncomplicated; G89.29 Other chronic pain; M41.9 Scoliosis, unspecified; Z79.899 Other long term (current) drug therapy; Z88.1 Allergy status to other antibiotic agents
CPT/HCPCS: 99283; 96372; J1885

== ENCOUNTER 2025-04-05 06:56 | Emergency (ER) | payer OTHER ==
[~2025-04-05] VITALS: Ht 172.7 cm; Wt 57.3 kg
[~2025-04-05 06:56] MED LIST changes: -ACET-66 PO; -GUAIFDM PO; +KETO10TA2 PO; -LORA0.5T20 PO
[2025-04-05 07:03] VITALS: TEMP 98.2
[2025-04-05] MEDS: IBUPROFEN 600 MG TABLET PO ONE (08:27)
[2025-04-05] MEDS: methocarbamoL 500 MG TABLET PO ONE (08:27)
[2025-04-05] MEDS: LIDOCAINE 5% TRANSDERMAL PATCH TD ONE (08:27)
[2025-04-05] MEDS ORDERED: METH-659 PO (09:02)
[2025-04-05] MEDS ORDERED: IBUP-1492 PO (09:02)
[2025-04-05] MEDS ORDERED: LIDO-57 TP (09:03)
[2025-04-05 09:15] VITALS: BP 102/60; PULSE 84; RESP 14; O2SAT 100
== END 2025-04-05 09:32 | disposition home or self-care (01) ==
LOC: EMS 06:59
DX: S29.012A Strain of muscle and tendon of back wall of thorax, initial encounter (principal); S16.1XXA Strain of muscle, fascia and tendon at neck level, initial encounter; J45.909 Unspecified asthma, uncomplicated; F32.A Depression, unspecified; F41.9 Anxiety disorder, unspecified; M41.9 Scoliosis, unspecified; F17.210 Nicotine dependence, cigarettes, uncomplicated; Z88.1 Allergy status to other antibiotic agents; Z79.899 Other long term (current) drug therapy; X58.XXXA Exposure to other specified factors, initial encounter; Y93.89 Activity, other specified; Y92.89 Other specified places as the place of occurrence of the external cause; Y99.8 Other external cause status
CPT/HCPCS: 99284; Z7502; Z7610